=== PATIENT | female | born 1940 | race Caucasian/White ===

== ENCOUNTER 2017-04-09 16:27 | Emergency (ER) | payer OTHER, MEDICARE ==
[~2017-04-09] VITALS: Ht 162.6 cm; Wt 88.6 kg
[2017-04-09 18:06] LABS: EOSINOPHIL (%) 1.2 % (0-5); EOSINOPHIL COUNT 0.1 K/uL (0-0.3); HEMATOCRIT 32.4 % (36.0-46.0); IMMATURE GRANULOCYTE (%) 0.9 % (0.0-0.7); IMMATURE GRANULOCYTE COUNT 0.1 K/uL; INSTRUMENT ABS NEUTROPHIL CT 6.8 K/uL; LYMPHOCYTE COUNT 0.5 K/uL (1.0-2.8); MCH 23.7 PG (29.0-34.0); MCHC 31.5 G/DL (30.0-36.0); MCV 75.2 FL (83-99); MEAN PLAT.VOLUME 11.1 uM^3 (9.5-12.4); MONOCYTE (%) 3.5 % (3-12); MONOCYTE COUNT 0.3 K/uL (0-0.8); NEUTROPHIL (%) 88.5 % (45-76); NEUTROPHIL COUNT 6.8 K/uL (1.8-6.4); PLATELET COUNT 91 K/uL (156-360); RBC DIS.WIDTH-CV 15.2 % (11.8-14.6); RBC DIS.WIDTH-SD 40.2 % (39-53); RED BLOOD COUNT 4.31 M/uL (3.80-5.20); WHITE BLOOD COUNT 7.7 K/uL (4.1-10.2)
[2017-04-09 18:25] LABS: CHLORIDE 103 mEq/L (99-109); POTASSIUM 3.7 mEq/L (3.7-5.4); SODIUM 141 mEq/L (136-147)
[2017-04-09 18:27] LABS: GLUCOSE 129 mg/dL (70-99)
[2017-04-09 18:28] LABS: ANION GAP 12 MEQ/L (2-14)
[2017-04-09 18:29] LABS: TOTAL BILIRUBIN 2.6 mg/dL (0.0-1.0)
[2017-04-09 18:31] LABS: ALKALINE PHOSPHATASE 195 IU/L (3-129); GFR ESTIMATE (CALCULATED) > 59 mL/min/
[2017-04-09 18:32] LABS: UREA NITROGEN (BUN) 19 mg/dL (9-23)
[2017-04-09 19:01] LABS: INTER. NORMALIZED RATIO 1.2; LIPASE 90 U/L (1.0-51.0); PROTHROMBIN TIME 12.7 SEC (10.2-12.9)
[2017-04-09 19:04] LABS: PTT 22.4 SEC (25-37)
[2017-04-09 19:47] LABS: ADD MIUA? YES; BILIRUBIN NEGATIVE; BLOOD NEGATIVE; COLOR YELLOW ((YELLOW)); GLUCOSE (STRIP) NEGATIVE; KETONES NEGATIVE; LEUKOCYTES TRACE; NITRITE NEGATIVE; PROTEIN (STRIP) NEGATIVE; SPECIFIC GRAVITY 1.009 (1.000-1.030); UROBILINOGEN 0.2 MG/DL (0.2-1.0)
[2017-04-09 19:50] LABS: BACTERIA NONE SEEN /HPF; EPITHELIAL CELLS RARE /HPF; MUCUS NONE SEEN /LPF; RED BLOOD CELLS 0-5 /HPF (0-5); UCUL ADDED? NO; WHITE BLOOD CELLS 0-5 /HPF (0-5)
[2017-04-09 22:02] VITALS: BP 121/46
[2017-04-10] MEDS ORDERED: AMILORIDE HCL5 MG PO (19:07)
[2017-04-10] MEDS ORDERED: ALLOPURINOL300 MG PO (19:13)
[2017-04-10] MEDS ORDERED: DEXILANT60 MG PO (19:13)
[2017-04-10] MEDS ORDERED: COLCRYS0.6 MG PO (19:14)
[2017-04-10] MEDS ORDERED: AZELASTINE HCL6 ML BOTH EYES (19:14)
[2017-04-10] MEDS ORDERED: ACTIGALL300 MG PO (19:14)
[2017-04-10] MEDS ORDERED: FUROSEMIDE40 MG PO (19:15)
[2017-04-10] MEDS ORDERED: TYLENOL EXTRA500 MG PO (19:15)
[2017-04-10] MEDS ORDERED: CYANOCOBALAM1000 MCG PO (19:15)
[2017-04-10] MEDS ORDERED: INDERAL LA120 MG PO (19:15)
== END 2017-04-09 22:11 | disposition home or self-care (01) ==
LOC: EME 16:27
PROVIDERS: Emergency Medicine
DX: B34.9 Viral infection, unspecified (principal); R50.9 Fever, unspecified
CPT/HCPCS: 71020; 76705; 80053; 81003; 83605; 83690; 85025; 85610; 85730; 87040; 87077; 87186; 87801; 99281; 99284; J2405

== ENCOUNTER 2017-04-10 13:44 | Inpatient (IN) | payer OTHER, MEDICARE ==
[~2017-04-10] VITALS: Ht 162.6 cm; Wt 90.0 kg
[2017-04-10 14:49] LABS: EOSINOPHIL (%) 0.3 % (0-5); IMMATURE GRANULOCYTE (%) 0.6 % (0.0-0.7); IMMATURE GRANULOCYTE COUNT 0.1 K/uL; INSTRUMENT ABS NEUTROPHIL CT 11.5 K/uL; LYMPHOCYTE COUNT 0.7 K/uL (1.0-2.8); MCH 23.3 PG (29.0-34.0); MCHC 30.9 G/DL (30.0-36.0); MCV 75.5 FL (83-99); MEAN PLAT.VOLUME 11.7 uM^3 (9.5-12.4); MONOCYTE (%) 4.6 % (3-12); MONOCYTE COUNT 0.6 K/uL (0-0.8); NEUTROPHIL (%) 88.7 % (45-76); NEUTROPHIL COUNT 11.5 K/uL (1.8-6.4); NRBC (%) 0.2 /100 WBC (0-0); PLATELET COUNT 109 K/uL (156-360); RBC DIS.WIDTH-CV 15.2 % (11.8-14.6); RBC DIS.WIDTH-SD 40.8 % (39-53); RED BLOOD COUNT 4.24 M/uL (3.80-5.20); WHITE BLOOD COUNT 12.9 K/uL (4.1-10.2)
[2017-04-10 14:58] LABS: CHLORIDE 101 mEq/L (99-109); POTASSIUM 3.7 mEq/L (3.7-5.4); SODIUM 137 mEq/L (136-147)
[2017-04-10 15:00] LABS: GLUCOSE 92 mg/dL (70-99)
[2017-04-10 15:01] LABS: ANION GAP 10 MEQ/L (2-14)
[2017-04-10 15:02] LABS: TOTAL BILIRUBIN 4.4 mg/dL (0.0-1.0)
[2017-04-10 15:03] LABS: ALKALINE PHOSPHATASE 150 IU/L (3-129); GFR ESTIMATE (CALCULATED) 36 mL/min/
[2017-04-10 15:06] LABS: UREA NITROGEN (BUN) 31 mg/dL (9-23)
[2017-04-10 15:07] LABS: LIPASE 44 U/L (1.0-51.0)
[2017-04-10 17:49] LABS: ADD MIUA? NO; BILIRUBIN NEGATIVE; BLOOD NEGATIVE; COLOR AMBER ((YELLOW)); GLUCOSE (STRIP) NEGATIVE; KETONES NEGATIVE; LEUKOCYTES NEGATIVE; NITRITE NEGATIVE; PROTEIN (STRIP) NEGATIVE; SPECIFIC GRAVITY 1.012 (1.000-1.030); UCUL ADDED? NO; UROBILINOGEN 0.2 MG/DL (0.2-1.0)
[2017-04-10] MEDS ORDERED: AMILORIDE HCL5 MG PO (19:07)
[2017-04-10] MEDS ORDERED: ALLOPURINOL300 MG PO (19:13)
[2017-04-10] MEDS ORDERED: DEXILANT60 MG PO (19:13)
[2017-04-10] MEDS ORDERED: COLCRYS0.6 MG PO (19:14)
[2017-04-10] MEDS ORDERED: ACTIGALL300 MG PO (19:14)
[2017-04-10] MEDS ORDERED: AZELASTINE HCL6 ML BOTH EYES (19:14)
[2017-04-10] MEDS ORDERED: TYLENOL EXTRA500 MG PO (19:15)
[2017-04-10] MEDS ORDERED: FUROSEMIDE40 MG PO (19:15)
[2017-04-10] MEDS ORDERED: CYANOCOBALAM1000 MCG PO (19:15)
[2017-04-10] MEDS ORDERED: INDERAL LA120 MG PO (19:15)
[2017-04-10 20:43] VITALS: BP 122/59
[2017-04-11 00:03] VITALS: BP 82/40
[2017-04-11 04:06] VITALS: BP 92/47
[2017-04-11 07:04] LABS: HEMATOCRIT 22.9 % (36.0-46.0); MCH 24.4 PG (29.0-34.0); MCHC 31.9 G/DL (30.0-36.0); MCV 76.6 FL (83-99); RBC DIS.WIDTH-CV 15.1 % (11.8-14.6); RBC DIS.WIDTH-SD 41.4 % (39-53); WHITE BLOOD COUNT 4.8 K/uL (4.1-10.2)
[2017-04-11 07:05] LABS: ALKALINE PHOSPHATASE 92 IU/L (3-129); ANION GAP 9 MEQ/L (2-14); CHLORIDE 106 MEQ/L (99-109); GFR ESTIMATE (CALCULATED) 39 mL/min/; GLUCOSE 79 mg/dL (70-99); POTASSIUM 3.6 MEQ/L (3.7-5.4); SAMPLE HEMOLYSIS CHECK 0; SAMPLE ICTERIC CHECK 1; SAMPLE LIPEMIA CHECK 0; SODIUM 138 MEQ/L (136-147); TOTAL BILIRUBIN 3.2 MG/DL (0.0-1.0); UREA NITROGEN (BUN) 35 mg/dL (9-23)
[2017-04-11 07:07] LABS: RED BLOOD COUNT 2.99 M/uL (3.80-5.20)
[2017-04-11 07:38] LABS: MEAN PLAT.VOLUME 10.7 uM^3 (9.5-12.4); PLAT.SUFFICIENCY DECREASED; PLATELET COUNT 53 K/uL (156-360)
[2017-04-11 08:29] VITALS: BP 110/53
[2017-04-11 10:54] LABS: HEMATOCRIT 25.5 % (36.0-46.0); MCV 75.9 FL (83-99)
[2017-04-11 11:36] VITALS: BP 100/52
[2017-04-11 16:06] VITALS: BP 107/52
[2017-04-11 19:43] VITALS: BP 125/58
[2017-04-12] VITALS (7 sets, daily range): BP systolic 113–139; BP diastolic 57–67
[2017-04-12 06:28] LABS: HEMATOCRIT 22.9 % (36.0-46.0); MCH 23.9 PG (29.0-34.0); MCHC 31.9 G/DL (30.0-36.0); MCV 75.1 FL (83-99); MEAN PLAT.VOLUME 11.7 uM^3 (9.5-12.4); PLATELET COUNT 65 K/uL (156-360); RBC DIS.WIDTH-CV 15.1 % (11.8-14.6); RBC DIS.WIDTH-SD 40.8 % (39-53); RED BLOOD COUNT 3.05 M/uL (3.80-5.20); WHITE BLOOD COUNT 3.8 K/uL (4.1-10.2)
[2017-04-12 07:55] LABS: ALKALINE PHOSPHATASE 94 IU/L (3-129); ANION GAP 7 MEQ/L (2-14); CHLORIDE 108 MEQ/L (99-109); FERRITIN 321 NG/ML (10-291); GFR ESTIMATE (CALCULATED) 43 mL/min/; GLUCOSE 76 mg/dL (70-99); IRON 46 MCG/DL (35-150); POTASSIUM 3.9 MEQ/L (3.7-5.4); SAMPLE HEMOLYSIS CHECK 0; SAMPLE ICTERIC CHECK 0; SAMPLE LIPEMIA CHECK 0; SODIUM 139 MEQ/L (136-147); TOTAL BILIRUBIN 2.7 MG/DL (0.0-1.0); UREA NITROGEN (BUN) 32 mg/dL (9-23)
[2017-04-12 16:08] LABS: HEMATOCRIT 28.1 % (36.0-46.0); MCV 75.5 FL (83-99)
[2017-04-13 04:00] VITALS: BP 129/59
[2017-04-13 07:41] VITALS: BP 107/52
[2017-04-13] MEDS ORDERED: CIPROFLOXACIN500 M1 PO (09:10)
[2017-04-13] MEDS ORDERED: ACIDOPHILUS LA1 EACH PO (09:10)
== END 2017-04-13 13:00 | disposition home or self-care (01) | DRG 872 ==
LOC: EME 13:44 → EDOF 18:13 → 5SOUTH 18:13 → ENRESERV 18:17 → 5SOUTH 20:38
PROVIDERS: Emergency Medicine; Internal Medicine; Nurse Practitioner Adult Health; Physician Assistant
DX: A41.52 Sepsis due to Pseudomonas (principal); N17.9 Acute kidney failure, unspecified; E87.2 Acidosis; L03.211 Cellulitis of face; D62 Acute posthemorrhagic anemia; D50.9 Iron deficiency anemia, unspecified; G89.29 Other chronic pain; M25.569 Pain in unspecified knee; I10 Essential (primary) hypertension; K74.3 Primary biliary cirrhosis; M1A.9XX1 Chronic gout, unspecified, with tophus (tophi); Z80.3 Family history of malignant neoplasm of breast; Z80.8 Family history of malignant neoplasm of other organs or systems; Z83.3 Family history of diabetes mellitus; Z85.3 Personal history of malignant neoplasm of breast; Z85.820 Personal history of malignant melanoma of skin; Z90.11 Acquired absence of right breast and nipple; M19.90 Unspecified osteoarthritis, unspecified site; R60.0 Localized edema
CPT/HCPCS: 71020; 76705; 80053; 81003; 82272; 82728; 83540; 83605; 83690; 84466; 85014; 85018; 85025; 85027; 85610; 85730; 86900; 86901; 86920; 87040; 87077; 87086; 87186; 87801; 99281; 99284; C1753; J0692; J2405; J7030; J7050